=== PATIENT | female | born 1955 | race Caucasian/White ===

== ENCOUNTER 2022-07-22 13:06 | Emergency (ER) | payer MEDICARE, OTHER ==
[~2022-07-22] VITALS: Ht 167.6 cm; Wt 129.3 kg
[2022-07-22] MEDS ORDERED: METF500 PO (13:29)
[2022-07-22] MEDS ORDERED: ANAS1 PO (13:29)
[2022-07-22] MEDS ORDERED: EUTHYROX50 MCG PO (13:30)
[2022-07-22] MEDS ORDERED: MELO7.5 PO (13:30)
[2022-07-22] MEDS ORDERED: CITALOPRAM HBR10 MG PO (13:30)
[2022-07-22] MEDS ORDERED: ERGO50000 PO (13:31)
[2022-07-22] MEDS ORDERED: PRAVASTATIN SOD10 MG PO (13:31)
[2022-07-22 13:41] LABS: Source, Urine Clean Catch
[2022-07-22 13:52] LABS: Blood, Urine 1+ (Neg); Glucose Qualitative, Urine Neg (Neg); Ketones, Urine Neg (Neg); Leukocyte Esterase, Urine 1+ (Neg); Nitrite, Urine Pos (Neg); Protein, Urine 2+ (Neg); Urobilinogen, Urine 3+ (Normal)
[2022-07-22 14:00] LABS: Bilirubin, Urine 3+ (Neg); Color, Urine Orange (P-Yellow)
[2022-07-22 14:01] LABS: Appearance, Urine Hazy (Clear)
[2022-07-22 14:03] LABS: Bacteria Many /hpf; Mucus Light (0-Heavy); Red Blood Cells, Urine 0-2 /hpf (0-2); Squamous Epithelial Cells Rare /hpf (Few)
[2022-07-22] MEDS ORDERED: Bactrim Ds Tab1 EACH PO (14:06)
== END 2022-07-22 14:24 | disposition home or self-care (01) ==
LOC: ER 13:06
PROVIDERS: Physician Assistant
DX: N39.0 Urinary tract infection, site not specified (principal); E11.9 Type 2 diabetes mellitus without complications; E03.9 Hypothyroidism, unspecified; Z79.899 Other long term (current) drug therapy; Z79.84 Long term (current) use of oral hypoglycemic drugs
CPT/HCPCS: 81001; 87077; 87086; 87186; 99283